=== PATIENT | female | born 1985 | race Caucasian/White ===

== ENCOUNTER → 2025-02-12 13:06 | Outpatient (REF) | payer BC, SELFPAY | LOC: HWWDC 13:06 | PROVIDERS: ATTENDING PHYSICIAN Obstetrics & Gynecology; FAMILY PHYSICIAN Internal Medicine | DX: Z12.31 Encounter for screening mammogram for malignant neoplasm of breast (principal) | CPT/HCPCS: 77063; 77067 ==